=== PATIENT | female | born 1980 | race American Indian/Alaskan Native ===

== ENCOUNTER 2016-08-13 20:35 | Emergency (ER) | payer MEDICARE ==
[2016-08-13 20:53] VITALS: BP 139/86
--- NOTE | 2016-08-14 00:46 | Emergency Department Report ---
HPI - General Chief Complaint: Upper Respiratory Infection Time Seen by Provider: 08/14/16 00:46 - HPI HPI: Patient here complaining of cough that started 4 days ago. She says she is coughing up yellow phlegm. She is also complaining the arthritis pain in lower back but it's radiating in her left leg. She said it started hurting a week ago but this is something that she has chronically and she's accident for pain medication until she can see her pain doctor. Pain to back and left leg is 6 out of 10 pain to right lower back is 7 out of 10. Denies. Any loss of bowel or bladder control. Denies any urinary burning frequency or urgency. Patient reports that she gets back pain every day and she would like to have Arnegard until she can see her doctor. She denies any numbness or tingling to extremities. She denies any shortness of breath or chest pain. Patient is also requesting a refill on her albuterol she says she has seasonal asthma and she ran out. She denies any fever or chills. She denies any abdominal a pain. ED Past Medical Hx - Past Medical History Previous Medical History?: Yes Hx Arthritis: Yes Hx Psychiatric Treatment: Yes Hx Asthma: Yes Additional medical history: bipolar, chronic pain - Surgical History Past Surgical History?: Yes Additional Surgical History: d&c - Family History Family history: hypertension - Social History Smoking Status: Never Smoker Substance Use Type: None - Medications Home Medications: Home Medications Medication Instructions Recorded Confirmed Last Taken Type Valproic Acid (As Sodium Salt) 500 mg PO HS 04/26/13 09/01/13 08/31/13 19:00 History [Depakene] diphenhydrAMINE [Benadryl] 50 mg PO QHS 04/26/13 09/01/13 08/31/13 19:00 History Acetamin/Codeine 120-12Mg/5 ml 5 ml PO TID PRN 5 Days 09/03/13 Unknown Rx [Tylenol/Codeine] Prednisone [predniSONE 10 mg 10 mg PO .TAPER #1 tab.ds.pk 09/03/13 Unknown Rx (6-Day Pack, 21 Tabs)] Ibuprofen [Motrin] 800 mg PO Q8H PRN #50 tablet 09/25/13 Unknown Rx Promethazine /Codeine 5 ml PO Q6H PRN #150 udc 09/25/13 Unknown Rx [Phenergan/Codeine 6.25-10 mg/5 ml] ALBUTEROL Inhaler [ProAir HFA 2 puff IH QID PRN #1 inhalation 10/02/13 Unknown Rx Inhaler] Azithromycin [Zithromax Z-SHANNAN] 250 mg PO DAILY #1 tablet 10/02/13 Unknown Rx Albuterol Sulfate [Ventolin HFA] 2 puff IH Q4H PRN #1 hfa.aer.ad 08/14/16 Unknown Rx Amoxicillin [Amoxicillin 400 MG/5 12.5 minute PO BID #250 ml 08/14/16 Unknown Rx ML] Fluticasone [Flonase] 1 spray NS QDAY #1 bottle 08/14/16 Unknown Rx Loratadine [Claritin] 10 mg PO QDAY #100 ml 08/14/16 Unknown Rx traMADol [Ultram 50 MG tab] 50 mg PO Q4HR PRN #20 tablet 08/14/16 Unknown Rx ED Review of Systems ROS: Stated complaint: ARTHRITIS PAIN/COUGH Other details as noted in HPI Comment: All other systems reviewed and negative Constitutional: denies: chills, fever Eyes: denies: eye discharge ENT: congestion. denies: ear pain, throat pain Respiratory: cough. denies: shortness of breath, SOB with exertion, SOB at rest , stridor, wheezing Cardiovascular: denies: chest pain, palpitations Gastrointestinal: denies: abdominal pain, nausea, vomiting Genitourinary: denies: urgency, dysuria, frequency, hematuria, discharge Musculoskeletal: back pain, arthralgia Skin: denies: rash Neurological: denies: headache, numbness, paresthesias, confusion, abnormal gait , vertigo Physical Exam - Physical Exam Vital Signs: Vital Signs 08/13/16 08/14/16 20:52 00:45 Temperature 97.7 F 99.9 F H Pulse Rate 83 100 H Respiratory 14 22 Rate Blood Pressure 139/86 [Right] O2 Sat by Pulse 99 98 Oximetry General: This is a 36-year-old female well nourished well-developed in no acute distress. Physical Exam: Head: Normocephalic atraumatic Mouth: Moist, no pharyngeal exudate or erythema. Uvula is midline and oral airway is patent. No facial swelling. No peritonsillar abscesses. Nose: Congested with erythema to mucosa. Clear Drainage. Maxillary and frontal sinuses tender to palpate Neck: Supple, no C-spine tenderness, no tracheal deviation. Nontender to palpate. no adenopathy Ears: Bilateral TMs congested without erythema. Bilateral EAC without any redness swelling or drainage. Bilateral otitis nontender to palpate Abdomen: Soft, nontender to palpate in all quadrants, normal bowel sounds in all quadrant and negative CVA tenderness bilaterally. Back: No vertebral or paraspinal tenderness. No saddle anesthesia. Patient able to ambulate without any difficulties. Negative SLR bilaterally. Neurological: GCS of 15, alert and oriented 3. Speech is clear and fluid. Normal gait. No motor or sensory deficit. Normal reflexes. No facial drooping. No pronator drift and negative Romberg. Eyes: Bilateral pupils equal and reactive to light, bilateral EOM intact. Bilateral sclera and conjunctiva without injection. Normal accommodation. No nystagmus Lungs: Clear to auscultate bilaterally no rhonchi wheezes or rales. Normal work of breathing extremity; No CCE. +2 pulses. No neurovascular compromise Cardiovascular: S1-S2, regular rate rhythm. No murmurs. Skin: clean Dry and intact no rash no lesions Psych: Normal mood and behavior ED Course Vital Signs 08/13/16 08/14/16 20:52 00:45 Temperature 97.7 F 99.9 F H Pulse Rate 83 100 H Respiratory 14 22 Rate Blood Pressure 139/86 [Right] O2 Sat by Pulse 99 98 Oximetry - Reevaluation(s) Reevaluation #1: 08/14/16 06:22 Patient had uneventful ED stay. ED Medical Decision Making - Medical Decision Making ED course: Discussed the patient that I cannot give her any narcotics for her chronic back pain she will need to follow-up with her pain specialist. Her Ultram to help but she will need to follow-up with her doctor to referred to a pain specialist. I also discussed the patient that she has a sinus infection and treated with Claritin, amoxicillin and Flonase. Patient discharged home with prescription for Claritin, amoxicillin and liquid as she said she can only swallow liquid. Prescription for Flonase and tramadol which I told she can crush tramadol and water. She understands discharge diagnosis and treatment plan and discharged home in no acute distress. Critical care attestation.: If time is entered above; I have spent that time in minutes in the direct care of this critically ill patient, excluding procedure time. ED Disposition Clinical Impression: Lumbar radiculopathy, chronic Sinusitis, acute Qualifiers: Sinusitis location: unspecified location Recurrence: not specified as recurrent Qualified Code(s): J01.90 - Acute sinusitis, unspecified Disposition: DISCHARGED TO HOME OR SELFCARE Is pt being admited?: No Does the pt Need Aspirin: No Condition: Stable Instructions: Sinusitis (ED), Lumbar Radiculopathy (ED) Additional Instructions: Follow-up with your primary care physician to refer you to orthopedic doctor regarding chronic pain. Take medication as prescribed. Prescriptions: Albuterol Sulfate [Ventolin HFA] 2 puff IH Q4H PRN #1 hfa.aer.ad PRN Reason: Shortness Of Breath Amoxicillin [Amoxicillin 400 MG/5 ML] 12.5 minute PO BID #250 ml Fluticasone [Flonase] 1 spray NS QDAY #1 bottle Loratadine [Claritin] 10 mg PO QDAY #100 ml traMADol [Ultram 50 MG tab] 50 mg PO Q4HR PRN #20 tablet PRN Reason: Pain Referrals: PRIMARY CARE,MD [Primary Care Provider] - 3-5 Days Forms: Accompanied Note, Work/School Release Form(ED)
== END 2016-08-14 01:15 | disposition home or self-care (01) ==
LOC: ED 20:35
DX: M54.16 Radiculopathy, lumbar region (principal); G89.29 Other chronic pain; J01.90 Acute sinusitis, unspecified; M19.90 Unspecified osteoarthritis, unspecified site; J45.909 Unspecified asthma, uncomplicated
CPT/HCPCS: 99282

== ENCOUNTER 2016-11-26 17:40 | Emergency (ER) | payer MEDICARE ==
[2016-11-26 18:03] VITALS: BP 122/83
--- NOTE | 2016-11-26 19:17 | Emergency Department Report ---
- General Chief Complaint: Upper Respiratory Infection Stated Complaint: ASTHMA/SOB/COUGHING Time Seen by Provider: 11/26/16 19:01 Source: patient Mode of arrival: Ambulatory Limitations: No Limitations - History of Present Illness Initial Comments: She comes in the ER today with complaints of cough, congestion, wheezing the past 2 weeks. Patient states that she has asthma and bronchitis and she has been out of her inhaler for a little while. She further notes that she has been around a lot of cigarette smoking as well. Patient denies any fever, hemoptysis, chest pain. - Related Data Home Medications Medication Instructions Recorded Confirmed Last Taken Valproic Acid (As Sodium Salt) 500 mg PO HS 04/26/13 09/01/13 08/31/13 19:00 [Depakene] diphenhydrAMINE [Benadryl] 50 mg PO QHS 04/26/13 09/01/13 08/31/13 19:00 Previous Rx's Medication Instructions Recorded Last Taken Type Prednisone [predniSONE 10 mg 10 mg PO .TAPER #1 tab.ds.pk 09/03/13 Unknown Rx (6-Day Pack, 21 Tabs)] Ibuprofen [Motrin] 800 mg PO Q8H PRN #50 tablet 09/25/13 Unknown Rx ALBUTEROL Inhaler [ProAir HFA 2 puff IH QID PRN #1 inhalation 10/02/13 Unknown Rx Inhaler] Albuterol Sulfate [Ventolin HFA] 2 puff IH Q4H PRN #1 hfa.aer.ad 08/14/16 Unknown Rx Fluticasone [Flonase] 1 spray NS QDAY #1 bottle 08/14/16 Unknown Rx Loratadine [Claritin] 10 mg PO QDAY #100 ml 08/14/16 Unknown Rx ALBUTEROL Inhaler [ProAir HFA 2 puff IH QID PRN #1 inh 11/26/16 Unknown Rx Inhaler] Amoxicillin/Potassium Clav 1,000 mg PO Q12HR 10 Days 11/26/16 Unknown Rx [Augmentin 400-57 MG / 5ml] Promethazine /Codeine 5 ml PO Q6H PRN #90 ml 11/26/16 Unknown Rx [Phenergan/Codeine 6.25-10 mg/5Ml] Allergies Allergy/AdvReac Type Severity Reaction Status Date / Time NSAIDS (Non-Steroidal Allergy Rash Verified 09/25/13 10:17 Anti-Inflamma ED Review of Systems ROS: Stated complaint: ASTHMA/SOB/COUGHING Other details as noted in HPI Constitutional: denies: chills, fever Eyes: denies: eye pain, eye discharge, vision change ENT: congestion. denies: ear pain, throat pain Respiratory: cough, wheezing. denies: shortness of breath Cardiovascular: denies: chest pain, palpitations Endocrine: no symptoms reported Gastrointestinal: denies: abdominal pain, nausea, diarrhea Genitourinary: denies: urgency, dysuria, discharge Musculoskeletal: denies: back pain, joint swelling, arthralgia Skin: denies: rash, lesions Neurological: denies: headache, weakness, paresthesias Psychiatric: denies: anxiety, depression Hematological/Lymphatic: denies: easy bleeding, easy bruising ED Past Medical Hx - Past Medical History Previous Medical History?: Yes Hx Arthritis: Yes Hx Psychiatric Treatment: Yes (bipolar) Hx Asthma: Yes Additional medical history: bipolar, chronic pain - Surgical History Past Surgical History?: Yes Additional Surgical History: d&c - Social History Smoking Status: Never Smoker Substance Use Type: Prescribed - Medications Home Medications: Home Medications Medication Instructions Recorded Confirmed Last Taken Type Valproic Acid (As Sodium Salt) 500 mg PO HS 04/26/13 09/01/13 08/31/13 19:00 History [Depakene] diphenhydrAMINE [Benadryl] 50 mg PO QHS 04/26/13 09/01/13 08/31/13 19:00 History Prednisone [predniSONE 10 mg 10 mg PO .TAPER #1 tab.ds.pk 09/03/13 Unknown Rx (6-Day Pack, 21 Tabs)] Ibuprofen [Motrin] 800 mg PO Q8H PRN #50 tablet 09/25/13 Unknown Rx ALBUTEROL Inhaler [ProAir HFA 2 puff IH QID PRN #1 inhalation 10/02/13 Unknown Rx Inhaler] Albuterol Sulfate [Ventolin HFA] 2 puff IH Q4H PRN #1 hfa.aer.ad 08/14/16 Unknown Rx Fluticasone [Flonase] 1 spray NS QDAY #1 bottle 08/14/16 Unknown Rx Loratadine [Claritin] 10 mg PO QDAY #100 ml 08/14/16 Unknown Rx ALBUTEROL Inhaler [ProAir HFA 2 puff IH QID PRN #1 inh 11/26/16 Unknown Rx Inhaler] Amoxicillin/Potassium Clav 1,000 mg PO Q12HR 10 Days 11/26/16 Unknown Rx [Augmentin 400-57 MG / 5ml] Promethazine /Codeine 5 ml PO Q6H PRN #90 ml 11/26/16 Unknown Rx [Phenergan/Codeine 6.25-10 mg/5Ml] ED Physical Exam - General Limitations: No Limitations General appearance: alert, in no apparent distress - Head Head exam: Present: atraumatic, normocephalic - Eye Eye exam: Present: normal appearance, PERRL. Absent: conjunctival injection - ENT ENT exam: Present: mucous membranes moist, TM's normal bilaterally, normal external ear exam, other (bilateral nasal mucosa redness and turbinate swelling with right greater than left.) - Neck Neck exam: Present: normal inspection, full ROM. Absent: tenderness, lymphadenopathy - Respiratory Respiratory exam: Present: rhonchi. Absent: respiratory distress, wheezes, rales, chest wall tenderness, decreased breath sounds - Cardiovascular Cardiovascular Exam: Present: regular rate, normal rhythm. Absent: systolic murmur, diastolic murmur, rubs, gallop - GI/Abdominal GI/Abdominal exam: Present: soft, normal bowel sounds - Extremities Exam Extremities exam: Present: normal inspection - Back Exam Back exam: Present: normal inspection - Neurological Exam Neurological exam: Present: alert, oriented X3 - Psychiatric Psychiatric exam: Present: normal affect, normal mood - Skin Skin exam: Present: warm, dry, intact, normal color. Absent: rash ED Course Vital Signs 11/26/16 17:58 Temperature 98.6 F Pulse Rate 103 H Respiratory 22 Rate Blood Pressure 122/83 O2 Sat by Pulse 98 Oximetry ED Medical Decision Making - Medical Decision Making Patient is nontoxic and hemodynamically stable. There are no audible wheezing noted and patient is in no acute distress during examination today. Patient has had symptoms for 2 weeks and I'll start patient on medications appropriately as well as refill her inhaler. Patient follow-up with her primary care doctor for further evaluation if symptoms fail to resolve or worsen. I have also encouraged patient to avoid any smoke exposure in the future. Patient is in agreement with treatment plan patient is stable for discharge. Critical care attestation.: If time is entered above; I have spent that time in minutes in the direct care of this critically ill patient, excluding procedure time. ED Disposition Clinical Impression: Asthmatic bronchitis, Sinusitis Disposition: - TO HOME OR SELFCARE Is pt being admited?: No Does the pt Need Aspirin: No Condition: Good Instructions: Acute Bronchitis (ED), Sinusitis (ED), How to Use a Metered-Dose Inhaler (ED) Prescriptions: ALBUTEROL Inhaler [ProAir HFA Inhaler] 2 puff IH QID PRN #1 inh PRN Reason: Shortness Of Breath Amoxicillin/Potassium Clav [Augmentin 400-57 MG / 5ml] 1,000 mg PO Q12HR 10 Days Promethazine /Codeine [Phenergan/Codeine 6.25-10 mg/5Ml] 5 ml PO Q6H PRN #90 ml PRN Reason: cough Referrals: PRIMARY CARE, [Primary Care Provider] - 3-5 Days Time of Disposition: 19:17
== END 2016-11-26 19:20 | disposition home or self-care (01) ==
LOC: ED 17:40
DX: J45.998 Other asthma (principal); J32.9 Chronic sinusitis, unspecified; M19.90 Unspecified osteoarthritis, unspecified site; F31.9 Bipolar disorder, unspecified; G89.29 Other chronic pain; Z88.8 Allergy status to other drugs, medicaments and biological substances
CPT/HCPCS: 99282

== ENCOUNTER 2016-12-17 13:05 | Emergency (ER) | payer MEDICARE ==
[2016-12-17 13:57] VITALS: BP 133/87
== END 2016-12-17 15:14 | disposition left against medical advice (07) ==
LOC: ED 13:05
DX: R05 Cough (principal); Z53.21 Procedure and treatment not carried out due to patient leaving prior to being seen by health care provider